=== PATIENT | female | born 1995 ===

== ENCOUNTER 2017-09-09 14:55 | Emergency (ER) | payer BC ==
[2017-09-09 15:28] VITALS: BMI 26.5
[2017-09-09 16:21] LABS: HCG,QUALITATIVE URINE NEGATIVE (NEGATIVE)
[2017-09-09 16:28] LABS: SQUAMOUS EPITHIAL 5 /hpf (0-5); URINE BACTERIA RARE (<OCC); URINE BILIRUBIN NEGATIVE (NEGATIVE); URINE BLOOD NEGATIVE (NEGATIVE); URINE CLARITY Hazy (Clear); URINE COLOR Yellow (YELLOW); URINE GLUCOSE (UA) NORMAL (Normal); URINE LEUKOCYTE ESTERASE NEG Leu/uL (Negative); URINE PROTEIN NEGATIVE (NEGATIVE); URINE UROBILINOGEN NORMAL mg/dL (0.2-1.0)
[2017-09-09 16:30] LABS: BASO % 0.6 % (0.0-2.0); EOS # 0.1 K/uL (0.0-0.7); EOS % 1.3 % (0.0-4.0); HEMOGLOBIN 14.7 g/dL (11.0-16.0); LYMPH # 0.8 K/uL (1.0-4.3); LYMPH % 11.9 % (20.0-40.0); MEAN CELL VOLUME 88.5 fL (81.0-99.0); MEAN CORPUSCULAR HEMOGLOBIN 30.7 pg (27.0-31.0); MEAN CORPUSCULAR HGB CONC 34.7 g/dL (33.0-37.0); MEAN PLATELET VOLUME 7.9 fL (7.2-11.7); MONO # 0.5 K/uL (0.0-0.8); MONO % 7.6 % (0.0-10.0); NEUT # 5.5 K/uL (1.8-7.0); NEUT % 78.6 % (50.0-75.0); RBC 4.8 Mil/uL (3.80-5.20); RED CELL DISTRIBUTION WIDTH 12.1 % (11.5-14.5)
[2017-09-09 16:40] LABS: ALB/GLOB RATIO 1.1 (1.0-2.1); ALBUMIN 4.1 g/dL (3.5-5.0); ALT/SGPT 27 U/L (9-52); AST/SGOT 28 U/L (14-36); BLOOD UREA NITROGEN 12 mg/dL (7-17); CALCIUM 9.2 mg/dl (8.6-10.4); GFR AFRICAN-AMERICAN > 60; GFR NON-AFRICAN AMERICAN > 60; LIPASE 176 U/L (23-300)
--- NOTE | 2017-09-09 18:51 | US ---
PROCEDURE: Pelvic ultrasound dated 09/09/2017 HISTORY: LLQ pain. h/o ovarian cysts COMPARISON: No prior study available for comparison. TECHNIQUE: Transabdominal -transvaginal sonographic evaluation of the pelvis performed. FINDINGS: The uterus is anteverted measuring approximately 8.0 x 3.6 x 4.4 cm. No uterine masses. Endometrial stripe measures 9.8 mm. Right ovary measures approximately 6.1 x4 0.6 x 5.9 cm. There is a large complex appearing cystic focus that measures 7.4 x 3.8 x 5.5 cm. Recommend follow-up pelvic ultrasound during the next menstrual cycle shortly following cessation of menses to assess for resolution. There is a small amount of free fluid adjacent to the right ovary. Right ovary exhibits arterial flow. . Left ovary measures approximately 2.8 x 1.6 x 2.5 cm. Left ovary exhibits arterial flow IMPRESSION: Large complex appearing right ovarian cyst. Small amount of for free fluid is present adjacent to the right ovary. Recommend follow-up ultrasound during the next menstrual cycle shortly following cessation of menses to assess for resolution of this large complex cyst.
--- NOTE | 2017-09-09 20:20 | C.PDOC ---
Time Seen by Provider: 09/09/17 16:00 Chief Complaint (Nursing): Abdominal Pain History Per: Patient Onset/Duration Of Symptoms: Days (3), Intermittent Episodes Current Symptoms Are (Timing): Still Present Severity: Moderate Location Of Pain/Discomfort: LLQ Quality Of Discomfort: "Pain" Alleviating Factors: None Additional History Per: Prior Records Abnormal Vaginal Bleeding: No Past Medical History Reviewed: Historical Data, Nursing Documentation, Vital Signs Vital Signs: Last Vital Signs Temp 98.6 F 09/09/17 21:32 Pulse 82 09/09/17 21:32 Resp 20 09/09/17 21:32 BP 102/67 09/09/17 21:32 Pulse Ox 98 09/09/17 21:32 - Medical History PMH: Asthma Other PMH: Ovarian cysts Surgical History: No Surg Hx Family History: States: Unknown Family Hx - Social History Hx Tobacco Use: No Hx Alcohol Use: Yes Hx Substance Use: No - Immunization History Hx Tetanus Toxoid Vaccination: Yes Hx Influenza Vaccination: Yes (2016) Hx Pneumococcal Vaccination: No Review Of Systems Except As Marked, All Systems Reviewed And Found Negative. Constitutional: Negative for: Fever, Weakness Cardiovascular: Negative for: Chest Pain Respiratory: Negative for: Shortness of Breath Gastrointestinal: Negative for: Vomiting, Diarrhea Genitourinary: Negative for: Dysuria, Hematuria, Vaginal Discharge, Vaginal Bleeding Musculoskeletal: Negative for: Neck Pain Skin: Negative for: Rash Neurological: Negative for: Weakness, Numbness Physical Exam - Physical Exam Appears: Non-toxic, No Acute Distress Skin: Normal Color, Warm, Dry, No Rash Head: Atraumatic, Normacephalic Eye(s): bilateral: Normal Inspection, PERRL, EOMI Neck: Normal ROM, Supple Cardiovascular: Rhythm Regular Respiratory: Normal Breath Sounds, No Accessory Muscle Use Gastrointestinal/Abdominal: Soft, Tenderness (LLQ) Back: No CVA Tenderness Extremity: Normal ROM Neurological/Psych: Oriented x3, Normal Motor, Normal Sensation ED Course And Treatment - Laboratory Results Result Diagrams: 09/09/17 16:24 09/09/17 16:24 Lab Interpretation: No Acute Changes Urine POC: Negative O2 Sat by Pulse Oximetry: 99 Pulse Ox Interpretation: Normal - CT Scan/US Pelvic US Other Rad Studies (CT/US): Read By Radiologist, Radiology Report Reviewed CT/US Interpretation: IMPRESSION: Large complex appearing right ovarian cyst. Small amount of for free fluid is present adjacent to the right ovary. Recommend follow-up ultrasound during the next menstrual cycle shortly following cessation of menses to assess for resolution of this large complex cyst. - Physician Consult Information Physician Contacted: Shirley Gamble (Buying Agent) Outcome Of Conversation: She examined pt in the ED. She states pt can be discharged home and f/up with her [facility] as outpatient. Disposition Counseled Patient/Family Regarding: Studies Performed, Diagnosis, Need For Followup, Rx Given - Disposition Disposition: HOME/ ROUTINE Disposition Time: 21:49 Condition: STABLE Additional Instructions: Follow up with your [facility] within 1 week for further evaluation and treatment. Return to the ER if you develop severe pain, vomiting, fever, worsening of symptoms or if you have any other concerns. Prescriptions: Naproxen [Naprosyn] 1 tab PO BID PRN #20 tab PRN Reason: Pain Instructions: Ovarian Cyst (DC) - Clinical Impression Clinical Impression: Complex cyst of right ovary, LLQ pain
--- NOTE | 2017-09-09 20:54 | CP.PCM.CON ---
History of Present Illness - History of Present Illness History of Present Illness: Pt is 21yo G0 with an LMP 07/26/2017. She had been on ocps which she also stopped in July and did not resume. She presents today w/ c/o left lower quad pain which she rates as 8-9/10 and is aggravated by laughing, walking, or change in position. Alleviated by remaining still. Last sexually active last night- denies dysparenia. She states on Saturday she had a mild LLQ pain. She denies increased physical exertion or any inciting event. Pt states she has a history of ovarian cyst which resolve spontaneously with the exception of 1 incident in which the cyst ruptured and was managed conservatively. She denies n/v, fever, vag d/c. PMHX: asthma; receive reg injections for allergies PSHX: ACL tear 2010; right hand surgery; appendectomy SHX: occupation: training denies tobacco or illicit drug use; etoh occasionally, 1x Q3mo's NKDA MEDIC: none Review of Systems - Constitutional Constitutional: absent: Excessive Sweating, Fever, Headache - Cardiovascular Cardiovascular: absent: Chest Pain, Chest Pain with Activity, Dyspnea - Respiratory Respiratory: absent: Cough, Dyspnea on Exertion, Pain on Inspiration - Gastrointestinal Gastrointestinal: absent: Dyspepsia, Dysphagia, Heartburn, Nausea, Vomiting - Genitourinary Genitourinary: absent: Dysuria - Reproductive: Female Reproductive:Female: absent: Dyspareunia, Genital Lesions, Vaginal Odor Past Patient History - Past Social History Smoking Status: Never Smoked - PULMONARY Hx Asthma: Yes - GENITOURINARY/GYNECOLOGICAL Hx Genitourinary Disorders: Yes (SEE COMMENT) Other/Comment: OVARIAN CYST BILATERALLY - PSYCHIATRIC Hx Substance Use: No Meds Allergies/Adverse Reactions: Allergies Allergy/AdvReac Type Severity Reaction Status Date / Time No Known Allergies Allergy Verified 09/09/17 15:27 Physical Exam - Constitutional Appears: Well, Non-toxic, No Acute Distress - Head Exam Head Exam: ATRAUMATIC, NORMOCEPHALIC - Respiratory Exam Respiratory Exam: NORMAL BREATHING PATTERN. absent: Accessory Muscle Use - GI/Abdominal Exam GI & Abdominal Exam: Soft. absent: Diminished Bowel Sounds, Distended, Firm, Guarding, Tenderness Results - Vital Signs Recent Vital Signs: Last Vital Signs Temp 98.2 F 09/09/17 15:30 Pulse 96 H 09/09/17 15:30 Resp 17 09/09/17 15:30 BP 107/74 09/09/17 15:30 Pulse Ox 99 09/09/17 20:21 - Labs Result Diagrams: 09/09/17 16:24 09/09/17 16:24 Labs: Laboratory Results - last 24 hr 09/09/17 09/09/17 09/09/17 16:18 16:24 16:24 WBC 7.0 RBC 4.80 Hgb 14.7 Hct 42.5 MCV 88.5 MCH 30.7 MCHC 34.7 RDW 12.1 Plt Count 313 MPV 7.9 Neut % (Auto) 78.6 H Lymph % (Auto) 11.9 L [place] % (Auto) 7.6 Eos % (Auto) 1.3 Baso % (Auto) 0.6 Neut # (Auto) 5.5 Lymph # (Auto) 0.8 L [place] # (Auto) 0.5 Eos # (Auto) 0.1 Baso # (Auto) 0.0 Sodium 139 Potassium 4.4 Chloride 103 Carbon Dioxide 27 Anion Gap 14 BUN 12 Creatinine 0.8 Est GFR ( Amer) > 60 Est GFR (Non-Af Amer) > 60 Random Glucose 91 Calcium 9.2 Total Bilirubin 0.4 AST 28 ALT 27 Alkaline Phosphatase 78 Total Protein 7.8 Albumin 4.1 Globulin 3.6 Albumin/Globulin Ratio 1.1 Lipase 176 Urine Color Yellow Urine Clarity Hazy Urine pH 6.0 Ur Specific [place] 1.028 Urine Protein Negative Urine Glucose (UA) Normal Urine Ketones Negative Urine Blood Negative Urine Nitrate Negative Urine Bilirubin Negative Urine Urobilinogen Normal Ur Leukocyte Esterase Neg Urine WBC (Auto) 1 Urine RBC (Auto) 3 Ur Squamous Epith Cells 5 Urine Bacteria Rare Urine HCG, Qual Negative
[2017-09-09 21:32] VITALS: BP 102/67; PULSE 82; RESP 20; TEMP 98.6
[2017-09-09 21:49] VITALS: O2SAT 99
== END 2017-09-09 21:55 | disposition home or self-care (01) ==
LOC: C.ER 14:55
DX: N83.201 Unspecified ovarian cyst, right side (principal); R10.32 Left lower quadrant pain
CPT/HCPCS: 76830; 76856; 80053; 81001; 83690; 84702; 84703; 85025; 96374; 99285; J1885